=== PATIENT | male | born 1945 | race Caucasian/White ===

== ENCOUNTER → 2017-06-08 | Outpatient (CLI) | payer OTHER | LOC: HYPER 06:44 | DX: E11.622 Type 2 diabetes mellitus with other skin ulcer (principal); L97.812 Non-pressure chronic ulcer of other part of right lower leg with fat layer exposed; I25.2 Old myocardial infarction; Z87.891 Personal history of nicotine dependence; Z72.89 Other problems related to lifestyle ==

== ENCOUNTER → 2019-09-06 | Outpatient (CLI) | payer OTHER | LOC: CAT 11:15 | DX: Z13.6 Encounter for screening for cardiovascular disorders (principal); E78.00 Pure hypercholesterolemia, unspecified; I25.10 Atherosclerotic heart disease of native coronary artery without angina pectoris ==

== ENCOUNTER → 2019-09-14 | Outpatient (CLI) | payer OTHER ==
[~2019-09-14] MED LIST: ADULT ASPIRIN R81 MG PO; ALTACE2.5 MG PO; BIOTIN1 M1 PO; CARVEDILOL12.5 MG PO; CLOPIDOGREL75 MG PO; LORAZEPAM 0.50.5 MG PO; NEXIUM 40 MG CA40 M1 PO; PHENYTOIN SODI100 M3 PO; REPATHA SY140 MG/1 M SUBQ; VITAMIN C100 MG PO
== END ==
LOC: SJCVC 08:18
DX: I21.19 ST elevation (STEMI) myocardial infarction involving other coronary artery of inferior wall (principal); R94.31 Abnormal electrocardiogram [ECG] [EKG]; I73.9 Peripheral vascular disease, unspecified; I72.4 Aneurysm of artery of lower extremity; I25.10 Atherosclerotic heart disease of native coronary artery without angina pectoris; E78.00 Pure hypercholesterolemia, unspecified; I25.2 Old myocardial infarction; Z87.891 Personal history of nicotine dependence; Z79.82 Long term (current) use of aspirin; Z95.5 Presence of coronary angioplasty implant and graft; Z79.899 Other long term (current) drug therapy

== ENCOUNTER → 2019-09-20 | Outpatient (CLI) | payer OTHER | LOC: SJCVCIMAG | DX: I21.09 ST elevation (STEMI) myocardial infarction involving other coronary artery of anterior wall (principal); R00.0 Tachycardia, unspecified; I25.10 Atherosclerotic heart disease of native coronary artery without angina pectoris; I10 Essential (primary) hypertension; E78.00 Pure hypercholesterolemia, unspecified; E78.5 Hyperlipidemia, unspecified; I25.2 Old myocardial infarction; I73.9 Peripheral vascular disease, unspecified; Z79.899 Other long term (current) drug therapy; Z79.82 Long term (current) use of aspirin; Z87.891 Personal history of nicotine dependence; Z98.61 Coronary angioplasty status ==

== ENCOUNTER 2019-09-22 08:03 | Observation (INO) | payer OTHER ==
[2019-09-22] VITALS (13 sets, daily range): BP systolic 108–158; BP diastolic 42–100
[~2019-09-22] VITALS: Ht 177.8 cm; Wt 95.3 kg
[2019-09-22 09:17] LABS: HEMATOCRIT 47.4 % (42.0-52.0); MCH 31.4 pg (26.0-34.0); MCHC 33.6 g/dL (28.0-37.0); MCV 93.4 fL (80.0-100.0); RBC 5.08 mil/uL (4.50-6.00); RDW 14.4 % (10.5-14.5); WBC 9.6 thou/uL (4.0-11.0)
[2019-09-22 09:22] LABS: CALCIUM 9.1 mg/dL (8.5-10.1); CREATININE 1.3 mg/dL (0.7-1.3); POTASSIUM 4.4 mmol/L (3.5-5.1)
[2019-09-22] MEDS ORDERED: ADULT ASPIRIN R81 MG PO (09:31)
[2019-09-22] MEDS ORDERED: VITAMIN C100 MG PO (09:31)
[2019-09-22] MEDS ORDERED: BIOTIN1 M1 PO (09:32)
[2019-09-22] MEDS ORDERED: CARVEDILOL12.5 MG PO (09:33)
[2019-09-22] MEDS ORDERED: NEXIUM 40 MG CA40 M1 PO (09:33)
[2019-09-22] MEDS ORDERED: REPATHA SY140 MG/1 M SUBQ (09:34)
[2019-09-22] MEDS ORDERED: LORAZEPAM 0.50.5 MG PO (09:35)
[2019-09-22] MEDS ORDERED: ALTACE2.5 MG PO (09:36)
[2019-09-22] MEDS ORDERED: PHENYTOIN SODI100 M3 PO (09:36)
--- NOTE | 2019-09-22 13:47 | 2DMMODE ---
[facility] [place] [address] 2 D/M-MODE ECHOCARDIOGRAM Name: DOUG GOLD Room #: 211-P [facility] M.R.#: [id number] Admission: 09/22/19 Attend Phys: Marito Guevara MD Discharge: Date of : 45 Report #: [id number] THIS REPORT FOR: cc: Nerissa Rain Christine L. DO Park,Marito Cain MD ~ APPROVED REPORT Study performed: 09/22/2019 12:59:08 EXAM: Limited 2D, Doppler, and color-flow Echocardiogram Patient Location: Bedside Room #: 211 Status: routine BSA: 2.13 HR: 78 bpm BP: 158/94 mmHg Rhythm: NSR/Frequent PVCs Other Information Study Quality: Good/flat on back post heart cath. Indications Limited echo to rule out pericardial effusion. CAD status post heart cath; no intervention. Hx: CAD, stent. Aortic Valve AoV Peak Tee.: 0.94 m/s AO Peak Gr.: 3.53 mmHg Tricuspid Valve TR Peak Tee.: 2.14 m/s RAP Estimate: 5.00 mmHg TR Peak Gr.: 18.28 mmHg PA Pressure: 23.00 mmHg Left Ventricle The left ventricle is normal size. Hypokinesis of the basal inferolateral segment. Left ventricular systolic function is mildly decreased. LVEF is 45%. Right Ventricle The right ventricle is normal size. The right ventricular systolic function is normal. [facility] [address] [place] [address] 2 D/M-MODE ECHOCARDIOGRAM Name: DOUG GOLD Room #: 211-P ADM IN M.R.#: [id number] Admission: 09/22/19 Attend Phys: Marito Guevara MD Discharge: Date of : 45 Report #: [id number] [place] The left atrium size is normal. The right atrium size is normal. Aortic Valve The aortic valve is normal in structure. Leaflets are mildly calcified. Trace aortic regurgitation. There is no aortic valvular stenosis. Mitral Valve The mitral valve is normal in structure. Mildly calcified leaflets. Mild mitral annular calcification. Mild to moderate mitral regurgitation; eccentric jet. Tricuspid Valve The tricuspid valve is normal in structure. Trace tricuspid regurgitation. Estimated PAP 20-25mmHg. Great Vessels IVC is normal in size and collapses >50% with inspiration. Pericardium There is no pericardial effusion. <Conclusion> The left ventricle is normal size. Left ventricular systolic function is mildly decreased. Hypokinesis of the basal inferolateral segment. The right ventricle is normal size. The left atrium size is normal. Trace aortic regurgitation. The mitral valve is normal in structure. Mildly calcified leaflets. Mild to moderate mitral regurgitation; eccentric jet. Trace tricuspid regurgitation. Estimated PAP 20-25mmHg. There is no pericardial effusion. <ELECTRONICALLY SIGNED> By: Marito Guevara MD 09/22/191345 45 45 Marito Guevara MD /ANTONINO
[2019-09-22] MEDS ORDERED: CLOPIDOGREL75 MG PO (15:54)
--- NOTE | 2019-09-22 16:31 | EKG ---
[facility] [place] [address] ELECTROCARDIOGRAM REPORT Name: DOUG GOLD Room #: 211-[facility] M.R.#: [id number] Admission: 09/22/19 Attend Phys: Marito Guevara MD Discharge: Date of : 45 Report #: [id number] THIS REPORT FOR: cc: Nerissa Rain Christine L. 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: Ragini BOCANEGRA : 1945 Requested By: Kishan Hamlin Order Number: [id number] MD: John Paul Cole Measurements Intervals [place] Rate: 80 P: 58 DE: 195 QRS: -32 QRSD: 95 T: 23 QT: 372 QTc: 430 Interpretive Statements Sinus rhythm Frequent premature ventricular complexes Inferior infarct, old Poor R wave progression No previous ECG available for comparison Electronically Signed On 09-22-2019 16:29:50 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
--- NOTE | 2019-09-22 16:41 | CATHLAB ---
[facility] [place] [address] INVASIVE PROCEDURE REPORT Name: DOUG GOLD Room #: 211-P [facility] Jai MAdalberto#: [id number] Admission: 09/22/19 Attend Phys: Marito Guevara MD Discharge: Date of : 45 Report #: [id number] THIS REPORT FOR: cc: Nerissa Rain Christine L. DO Park, Jin S. MD ~ APPROVED REPORT Study performed: 09/22/2019 11:28:10 Patient Details Patient Status: Out-Patient Room #: The patient is a 74 year-old male Event Personnel Marito Guevara Manager Utilization Management, Rosalind Ohara RN RN, Placido Garrido RTR Monitor, Kishan Gu Monitor, Stephani Almeida RTR Scrub Procedures Performed Left Heart Cath w/or w/o Coronaries [id number] [facility] Art Access - R femoral artery* 40470 Initial Mod Sed Same Phys/QHP Gr5y [id number] 69403 Mod Sed Same Phys/QHP Ea 121013 Hemostasis w/ Mynx Indication Dyspnea, Positive stress test Risk Factors Peripheral Vascular Disease, HypercholesterolemiaPhysical Activity, Coronary Artery DiseaseHypertension Previous Procedures/Diagnoses Previous PCI, Previous MIPrevious Vascular Surgery Procedure Narrative The patient was brought electively to the Cardiac Catheterization Laboratory and was prepped and draped in a sterile manner. A SHEATH BRITE-TIP 6F X 23CM ([id number]) sheath was inserted into the RFA^. Coronary angiography was performed using coronary diagnostic catheters. The right coronary system was accessed and visualized with a JR4 catheter. The left coronary system was accessed and visualized with a JL4 catheter. The left ventricle was accessed and visualized with a ANGLED PIGTAIL catheter. Closure device was deployed with a Fr [facility] [address] [place] [address] INVASIVE PROCEDURE REPORT Name: DOUG GOLD Room #: [facility].#: [id number] Admission: 09/22/19 Attend Phys: Marito Guevara MD Discharge: Date of : 45 Report #: [id number] 6/7F #[id number]. The patient tolerated the procedure well and there were no complications associated with the procedure. There was no hematoma. Intraoperative Conscious Sedation Sedation start time: 11:42 Case end Time: 12:22 Fentanyl 1.0 mcg Versed 50.0 mg Fluoro Time: 9.43 minutes Dose: DAP 99211.80 cGycm2 1447 mGy Contrast Type and Amount: Visipaque 200 ml Coronary Angiography The patient's coronary anatomy is right dominant. Diagnostic Cath Left Main The left main artery is a large-caliber vessel, patent with no flow-limiting lesions. LAD The LAD is a moderate size caliber vessel, traversing the anterior wall and terminating at the apex. There is mild diffuse disease in the proximal and mid segments, 20%. Diagonal 1 This is a small-caliber vessel, with patent with no flow-limiting lesions. Circumflex The left circumflex artery supplies one OM vessel. There is a severe stenosis in the mid segment of the left circumflex artery. OM1 This is a patent vessel, with no flow-limiting lesions. Right Coronary The RCA is a moderate to large caliber vessel, dominant. There is mild disease in the proximal segment. There is a patent stent in the mid segment, with minimal restenosis. R PDA The PDA is a moderate size caliber vessel, patent with no flow-limiting lesions. RPLV The RPL artery is a moderate size caliber vessel with a severe stenosis in the proximal segment, 70%. Left Ventriculography Left Ventriculography was not performed. Ejection Fraction was 60-65% based off patient's Nuclear Cardiac Stress Test. An LVEDP was measured and there is no gradient across the outflow tract. Hemodynamics The aortic pressure is 171/83 mmHg with a mean of 116 mmHg. The left ventricular pressure is 175/14 mmHg with a mean of mmHg. The left ventricular end diastolic pressure is 22 mmHg. [facility] [address] [place] [address] INVASIVE PROCEDURE REPORT Name: DOUG GOLD Room #: 211-P [facility] IN M.R.#: [id number] Admission: 09/22/19 Attend Phys: Marito Guevara MD Discharge: Date of : 45 Report #: [id number] PCI Technique Lesion Percutaneous coronary intervention was performed on the mid left circumflex artery. The lesion stenosis prior to intervention was 95% with MATHEW 3 flow. BALLOON DILATION Unsuccessful PCI due to inability to cross this stenosis with a wire. Attempts were made with Luge and Whisper wires. This most likely is a chronic occlusion with collateral filling of the distal vessel. The patient tolerated the procedure without any symptoms or hemodynamic compromise. Conclusion 1. Unsuccessful PCI due to inability to cross the stenosis with a wire in the mid segment of the left circumflex artery. 2. There is a patent stent in the mid RCA. 3. There is a severe stenosis in the proximal segment of the RPL branch. 4. Recommend guideline directed medical therapy. <ELECTRONICALLY SIGNED> By: Marito Guevara MD 09/22/19 1640 1640 1640 Marito Guevara MD /INF
--- NOTE | 2019-09-22 18:38 | NUR ---
ASSUMED CARE AT APPROX 1300 FROM [employer]. PT HAD LERO AND HEART CATH. ADMISSION ORDERS COMPLETE. ASSESSMENTS CHARTED. MEDS GIVEN PER SEP. R GROIN SITE CDI AND REMAINS SOFT AND WITHOUT HEMATOMA OR BRUISING. STAYING OVERNIGHT TO HYDRATE. PLAN TO DISCHARGE IN THE MORNING. WILL CONTINUE TO MONITOR AND FOLLOW POC.
[2019-09-23 03:45] VITALS: BP 149/79
--- NOTE | 2019-09-23 04:58 | NUR ---
ASSUMED PT CARE AT 1900. PT IS ALERT AND ORIENTED WITH NO SIGN OF DISTRESS NOTED. RIGHT GROIN SITE IS INTACT, CLEAN, DRY. NO SIGN OF BLEEDING, HEMATOMA, OR BRUSING. DENIES ANY PAIN. SPOUSE AT BEDSIDE. ASSESSMENT COMPLETED AND DOCUMENTED. SCHEDULED MEDS ADMINISTERED TO PT. CONTINUE TO MONITOR PATIENT. DENIES ANY FURTHER NEEDS AT THIS TIME.
[2019-09-23 05:06] LABS: HEMATOCRIT 46.4 % (42.0-52.0); HEMOGLOBIN 15.6 gm/dL (14.0-18.0); MCH 31.4 pg (26.0-34.0); MCHC 33.7 g/dL (28.0-37.0); MCV 93.4 fL (80.0-100.0); RBC 4.96 mil/uL (4.50-6.00); RDW 14.7 % (10.5-14.5); WBC 9.8 thou/uL (4.0-11.0)
[2019-09-23 05:39] LABS: CALCIUM 8.8 mg/dL (8.5-10.1); CREATININE 1.2 mg/dL (0.7-1.3)
[2019-09-23 06:40] VITALS: BP 146/81
[2019-09-23 08:00] VITALS: BP 139/89
[2019-09-23 09:32] VITALS: BP 139/89
--- NOTE | 2019-09-23 10:05 | NUR ---
DR. JAMESON DISCHARGING HIM TO HOME WITH SELF CARE. DISCHARGE AND PLAVIX INSTRUCTIONS GIVEN. SR PER TELE, TELE DISCONTINUED. WILL WC TO FRONT ENTRANCE, HIS DRIVING.
== END 2019-09-23 11:07 | disposition home or self-care (01) ==
LOC: CATH 08:03 → 2N 12:13 → CATH 16:19 → 2N 09-23 11:07
PROVIDERS: Nuclear Medicine Nuclear Cardiology; ADMIT Internal Medicine Cardiovascular Disease
DX: I70.212 Atherosclerosis of native arteries of extremities with intermittent claudication, left leg (principal); L97.929 Non-pressure chronic ulcer of unspecified part of left lower leg with unspecified severity; I10 Essential (primary) hypertension; E11.51 Type 2 diabetes mellitus with diabetic peripheral angiopathy without gangrene; I77.1 Stricture of artery

== ENCOUNTER → 2019-10-16 | Outpatient (CLI) | payer OTHER | LOC: SJCVC 12:52 | PROVIDERS: ATTEND Internal Medicine Cardiovascular Disease | DX: I25.10 Atherosclerotic heart disease of native coronary artery without angina pectoris (principal); R94.31 Abnormal electrocardiogram [ECG] [EKG]; I11.9 Hypertensive heart disease without heart failure; I73.9 Peripheral vascular disease, unspecified; E78.00 Pure hypercholesterolemia, unspecified; I25.2 Old myocardial infarction; Z79.899 Other long term (current) drug therapy; Z87.891 Personal history of nicotine dependence ==

== ENCOUNTER → 2020-04-15 | Outpatient (CLI) | payer OTHER | LOC: SJCVC 12:45 | PROVIDERS: ATTEND Internal Medicine Cardiovascular Disease | DX: R94.31 Abnormal electrocardiogram [ECG] [EKG] (principal); E78.00 Pure hypercholesterolemia, unspecified; I25.2 Old myocardial infarction; I11.9 Hypertensive heart disease without heart failure; I73.9 Peripheral vascular disease, unspecified; I25.10 Atherosclerotic heart disease of native coronary artery without angina pectoris; Z87.891 Personal history of nicotine dependence; Z79.899 Other long term (current) drug therapy ==

== ENCOUNTER 2020-05-04 10:59 | Emergency (ER) | payer OTHER ==
[~2020-05-04] VITALS: Ht 177.8 cm; Wt 92.5 kg
[2020-05-04] MEDS ORDERED: LIDODERM1 EACH TOP (12:47)
[2020-05-04] MEDS ORDERED: NORCO 5-325 TA1 EAC2 PO (12:47)
[2020-05-04 13:09] VITALS: BP 164/82
== END 2020-05-04 13:09 | disposition home or self-care (01) ==
LOC: ER 10:59
DX: S22.41XA Multiple fractures of ribs, right side, initial encounter for closed fracture (principal); S50.01XA Contusion of right elbow, initial encounter; E78.00 Pure hypercholesterolemia, unspecified; I25.2 Old myocardial infarction; I73.9 Peripheral vascular disease, unspecified; I12.9 Hypertensive chronic kidney disease with stage 1 through stage 4 chronic kidney disease, or unspecified chronic kidney disease; N18.9 Chronic kidney disease, unspecified; Z79.899 Other long term (current) drug therapy; Z79.82 Long term (current) use of aspirin; W18.09XA Striking against other object with subsequent fall, initial encounter; Y93.89 Activity, other specified; Y92.098 Other place in other non-institutional residence as the place of occurrence of the external cause; Y99.8 Other external cause status

== ENCOUNTER → 2020-07-10 | Outpatient (CLI) | payer OTHER ==
[~2020-07-10] MED LIST changes: +LIDODERM1 EACH TOP; +NORCO 5-325 TA1 EAC2 PO
== END ==
LOC: SJCVCIMAG 07:45
PROVIDERS: ATTEND Internal Medicine Cardiovascular Disease
DX: I70.203 Unspecified atherosclerosis of native arteries of extremities, bilateral legs (principal); I65.23 Occlusion and stenosis of bilateral carotid arteries; I25.10 Atherosclerotic heart disease of native coronary artery without angina pectoris; I25.2 Old myocardial infarction; E78.00 Pure hypercholesterolemia, unspecified; M79.661 Pain in right lower leg; M79.662 Pain in left lower leg; Z86.12 Personal history of poliomyelitis

== ENCOUNTER → 2020-07-23 | Outpatient (CLI) | payer OTHER | LOC: SJCVC 12:41 | PROVIDERS: ATTEND Nuclear Medicine Nuclear Cardiology | DX: I73.9 Peripheral vascular disease, unspecified (principal); I25.2 Old myocardial infarction; I25.10 Atherosclerotic heart disease of native coronary artery without angina pectoris; I72.4 Aneurysm of artery of lower extremity; I77.9 Disorder of arteries and arterioles, unspecified; E78.00 Pure hypercholesterolemia, unspecified; E78.5 Hyperlipidemia, unspecified; I10 Essential (primary) hypertension; Z87.891 Personal history of nicotine dependence; Z79.899 Other long term (current) drug therapy ==

== ENCOUNTER → 2020-10-07 | Outpatient (CLI) | payer OTHER | LOC: SJCVCIMAG 08:54 | PROVIDERS: ATTEND Internal Medicine Cardiovascular Disease | DX: R94.31 Abnormal electrocardiogram [ECG] [EKG] (principal); I11.9 Hypertensive heart disease without heart failure; I25.10 Atherosclerotic heart disease of native coronary artery without angina pectoris; I25.5 Ischemic cardiomyopathy; I73.9 Peripheral vascular disease, unspecified; E78.00 Pure hypercholesterolemia, unspecified; R06.00 Dyspnea, unspecified; R26.9 Unspecified abnormalities of gait and mobility; I25.2 Old myocardial infarction; Z79.82 Long term (current) use of aspirin; Z79.899 Other long term (current) drug therapy; Z87.891 Personal history of nicotine dependence ==

== ENCOUNTER → 2021-04-09 | Outpatient (CLI) | payer OTHER | LOC: SJCVC 13:16 | PROVIDERS: ATTEND Internal Medicine Cardiovascular Disease | DX: R94.31 Abnormal electrocardiogram [ECG] [EKG] (principal); I25.10 Atherosclerotic heart disease of native coronary artery without angina pectoris; I25.5 Ischemic cardiomyopathy; I73.9 Peripheral vascular disease, unspecified; E78.00 Pure hypercholesterolemia, unspecified; I10 Essential (primary) hypertension; R06.00 Dyspnea, unspecified; I42.9 Cardiomyopathy, unspecified; E78.5 Hyperlipidemia, unspecified; Z79.82 Long term (current) use of aspirin; Z79.899 Other long term (current) drug therapy; Z88.8 Allergy status to other drugs, medicaments and biological substances; Z87.891 Personal history of nicotine dependence ==

== ENCOUNTER → 2021-07-29 | Outpatient (CLI) | payer OTHER | LOC: SJCVCIMAG 07:57 | PROVIDERS: ATTEND Nuclear Medicine Nuclear Cardiology | DX: I65.23 Occlusion and stenosis of bilateral carotid arteries (principal); I70.223 Atherosclerosis of native arteries of extremities with rest pain, bilateral legs; I72.4 Aneurysm of artery of lower extremity; I77.9 Disorder of arteries and arterioles, unspecified; I25.10 Atherosclerotic heart disease of native coronary artery without angina pectoris; E78.00 Pure hypercholesterolemia, unspecified; I25.2 Old myocardial infarction; I12.9 Hypertensive chronic kidney disease with stage 1 through stage 4 chronic kidney disease, or unspecified chronic kidney disease; N18.9 Chronic kidney disease, unspecified; E78.5 Hyperlipidemia, unspecified; Z82.49 Family history of ischemic heart disease and other diseases of the circulatory system; Z87.891 Personal history of nicotine dependence; Z79.899 Other long term (current) drug therapy ==